=== PATIENT | female | born 1970 | race Native Hawaiian/Other Pacific Islander ===

== ENCOUNTER → 2017-05-13 | Day surgery (SDC) | payer OTHER ==
[~2017-05-13] VITALS: Ht 165.1 cm; Wt 52.9 kg
[~2017-05-13] MED LIST: *ONDANSETRON 4 MG VIAL PERIprocedural Use ONLY ONE; *morphine SULFATE 8 MG/ML PERIprocedure ONLY ONE; ACETAMINOPHEN 1000 MG/100 ML 0 ML IV ONE; ACETAMINOPHEN 1000 MG/100 ML 100 ML IV ONE; AMOX500T PO; BUPIVACAINE/EPINEPHRINE 0.25% PF 10 ML VIAL INFIL ONE; BUPIVACAINE/EPINEPHRINE 0.25% PF 30 ML VIAL INFIL ONE; CHLORHEXIDINE GLUCONATE 2 % 1 PACK (2 CLOTHS) TOPICAL PRN; DEXAMETHASONE SOD PHOS 4 MG/ML VIAL ONE; DO NOT ADM ANY ANTICOAGULANT DRUGS PRN; FAMOTIDINE 20 MG/2 ML VIAL ONE; FENO145T2 PO; FEXO60TA PO; GLYCOPYRROLATE 1 MG/5 ML SYRINGE IV PUSH ONE; INSULIN HUMAN REGULAR 1,000 UNITS/10 ML VIAL SQ PRN; KETOROLAC TROMETHAMINE 30 MG/ML (IVP) VIAL IV PUSH ONE; LEVO.1 PO; LIDOCAINE HCL 1% PF 5 ML AMPULE OTHER ONE; LORazepam 0.5 MG TAB PO ONE; METOPROLOL TARTRATE 25 MG TAB PO PRN; MIDAZOLAM HCL 2 MG/2 ML VIAL ONE; MULTTAB67 PO; NEOSTIGMINE 3 MG/3 ML SYR IV ONE; ONDANSETRON HCL 4 MG/2 ML VIAL ONE; PERC5TAB12 PO; POVIDONE IODINE 5% (ANTISEPSIS KIT) 4 APPLICATIONS EACH NARE PRN; PREN0.01 PO; PROMETHAZINE INJ 25 MG/ML VIAL ONE; PROPOFOL 200 MG/20 ML AMP IV ONE; ROCURONIUM INJ 50 MG/5 ML SYRINGE IV PUSH ONE; SYNT88TA PO; ePHEDrine/NS 25 MG/5 ML SYR IV ONE; oxyCODONE/ACETAMINOPHEN 5 MG/325 MG TAB PO PRN
[2017-05-13] MEDS: LACTATED RINGER'S 1000 ML IV PRN ×2 (07:45→12:30)
--- NOTE | 2017-05-13 11:20 | PD.OP ---
Operative Report Date of Surgery: May 13, 2017 Preoperative Diagnosis: (1) Ovarian cyst Postoperative Diagnosis: (1) Ovarian cyst Procedure: operative laparoscopy and bilateral salpingectomy Surgeon: Robe Hernandez Fusing Line Inspector(s): none Operation and Findings: bilateral ovarian cyst Robe Hernandez MD May 13, 2017 11:20
--- NOTE | 2017-05-13 11:28 | HHI.DCPOC ---
Discharge Care Plan Diagnosis: (1) Ovarian cyst Report Symptoms to Your Doctor -Temperature above 100.5 degrees -Redness, of incision or excessive or foul smelling drainage -Unusual pain or calf pain -Increased vaginal bleeding -Painful or difficulty urinating -Feelings of extreme sadness or anxiety after 2 weeks Goals to Promote Your Health * To prevent worsening of your condition and complications * To maintain your health at the optimal level Directions to Meet Your Goals Take your medications as prescribed Follow your dietary instruction Follow activity as directed Ensure plenty of rest for recovery Drink fluids for hydration Keep your appointments as scheduled Take your immunizations and boosters as scheduled If your symptoms worsen call your PCP, if no PCP go to Urgent Care Center or Emergency Room Smoking is Dangerous to Your Health. Avoid second hand smoke Call the 24-hour crisis hotline for domestic abuse at Robe Hernandez MD May 13, 2017 11:28
--- NOTE | 2017-05-13 11:29 | HHI.DS ---
Admission Date Discharge Date: May 13, 2017 Admitting Diagnosis Diagnosis: (1) Ovarian cyst Diagnosis: Principal ICD Codes: N83.209 - Unspecified ovarian cyst, unspecified side Brief History bilateral ovarian cysts Hospital Course patient had suregery and had both cysts removed Pt Condition on Discharge: Good Discharge Disposition: Discharge Home Discharge Instructions Diet Instructions: As Tolerated, No Restrictions Activities You Can Perform: Regular-No Restrictions Activities to Avoid: Driving for 24 hrs Follow up Referrals: G[facility]PER - 2 Weeks @ [facility] with Robe Hernandez MD New Medications: Oxycodone-Acetaminophen (Percocet) 5-325 mg Tab 1-2 TAB PO Q4H PRN for PAIN for 7 Days, #30 TAB 0 Refills Continued Medications: Fenofibrate (Fenofibrate) 145 Mg Tab 145 MG PO DAILY, #30 TAB 0 Refills Levothyroxine (Synthroid) 100 Mcg Tab 100 MCG PO DAILY for Thyroid, #30 TAB 0 Refills Multiple Vitamin (Multiple Vitamin) 1 Tab 1 TAB PO DAILY for Nutritional Supplement, TAB 0 Refills Robe Hernandez MD May 13, 2017 11:29
--- NOTE | 2017-05-13 12:03 | MP ---
cc: GEOFFREY ASH DATE OF SURGERY 05/13/2017 PROCEDURE Operative laparoscopy with bilateral cyst removal from both ovaries. PREOPERATIVE DIAGNOSIS Bilateral ovarian cysts. POSTOPERATIVE DIAGNOSIS Bilateral ovarian cysts. ANESTHESIA General Dr. Simmons. COMPLICATIONS None. FINDINGS Two large cysts on the left ovary and one small cyst on the right. Normal uterus. Normal anterior and posterior cul-de-sac. Normal liver and upper abdomen. PROCEDURE IN DETAIL After informed consent, the patient was taken to the operating room where she was placed under general anesthesia, placed in supine position. The bladder was drained with a red Andrews catheter. After the patient was prepped and draped in the normal sterile fashion a time-out was taken. A 5-mm infraumbilical incision was then made, carried sharply down through the subcutaneous tissue, entered the abdomen under direct visualization. The abdomen was insufflated to accommodate a 10-mm trocar through an old scar suprapubically and in the left lower quadrant, a 5-mm trocar. They were all injected with 0.25% Marcaine before entering the abdomen. The patient tolerated the procedure well. We surveyed the upper and lower abdomen. There was some omentum adherent to the anterior abdominal wall near the umbilicus but was not obscuring our surgery. We then used a harmonic scalpel to remove the cyst from the right ovary. Good hemostasis was achieved. The right ovary was much smaller than the left ovary, about half the size. On the left-hand side there were two large cysts; one appeared to be a hemorrhagic cyst, the other appeared to be a clear fluid-filled cyst. Both were taken down and taken off the ovary with 80% of the ovary remaining. Good hemostasis was achieved with the harmonic scalpel. Both cysts were removed from the abdomen to be sent to pathology for identification. The patient tolerated the procedure well. There was no blood or debris left in the abdomen. All instruments were removed. CO2 was drained from the abdomen and the fascia was closed suprapubically with 2-0 Vicryl and then 4-0 Monocryl was used to close the three incisions on the abdomen. The patient tolerated the procedure well. She was taken to the recovery room in stable condition. Lap and instrument counts were reported as correct. MD MARILEE Cantrell/GLADYS /11:21 AM /11:53 AM
[2017-05-13 15:55] VITALS: BP 108/67; PULSE 78; RESP 18; TEMP 97.1; O2SAT 100
== END | disposition home or self-care (01) ==
LOC: HSDC 06:26
PROVIDERS: ATTEND Obstetrics & Gynecology
DX: N83.201 Unspecified ovarian cyst, right side (principal); N83.12 Corpus luteum cyst of left ovary; E03.9 Hypothyroidism, unspecified; F41.9 Anxiety disorder, unspecified; F32.9 Major depressive disorder, single episode, unspecified; Z79.899 Other long term (current) drug therapy
CPT/HCPCS: 88304; 88305; J0131; J1100; J1885; J2250; J2270; J2405; J2550; J2710; J3010; J7120

== ENCOUNTER 2017-10-31 02:40 | Emergency (ER) | payer OTHER ==
[~2017-10-31] VITALS: Ht 165.1 cm; Wt 53.6 kg
[~2017-10-31 02:40] MED LIST changes: -*ONDANSETRON 4 MG VIAL PERIprocedural Use ONLY ONE; -*morphine SULFATE 8 MG/ML PERIprocedure ONLY ONE; -ACETAMINOPHEN 1000 MG/100 ML 0 ML IV ONE; -ACETAMINOPHEN 1000 MG/100 ML 100 ML IV ONE; -AMOX500T PO; -BUPIVACAINE/EPINEPHRINE 0.25% PF 10 ML VIAL INFIL ONE; -BUPIVACAINE/EPINEPHRINE 0.25% PF 30 ML VIAL INFIL ONE; -CHLORHEXIDINE GLUCONATE 2 % 1 PACK (2 CLOTHS) TOPICAL PRN; -DEXAMETHASONE SOD PHOS 4 MG/ML VIAL ONE; -DO NOT ADM ANY ANTICOAGULANT DRUGS PRN; -FAMOTIDINE 20 MG/2 ML VIAL ONE; -FEXO60TA PO; -GLYCOPYRROLATE 1 MG/5 ML SYRINGE IV PUSH ONE; -INSULIN HUMAN REGULAR 1,000 UNITS/10 ML VIAL SQ PRN; -KETOROLAC TROMETHAMINE 30 MG/ML (IVP) VIAL IV PUSH ONE; -LIDOCAINE HCL 1% PF 5 ML AMPULE OTHER ONE; -LORazepam 0.5 MG TAB PO ONE; -METOPROLOL TARTRATE 25 MG TAB PO PRN; -MIDAZOLAM HCL 2 MG/2 ML VIAL ONE; -NEOSTIGMINE 3 MG/3 ML SYR IV ONE; -ONDANSETRON HCL 4 MG/2 ML VIAL ONE; -POVIDONE IODINE 5% (ANTISEPSIS KIT) 4 APPLICATIONS EACH NARE PRN; -PREN0.01 PO; -PROMETHAZINE INJ 25 MG/ML VIAL ONE; -PROPOFOL 200 MG/20 ML AMP IV ONE; -ROCURONIUM INJ 50 MG/5 ML SYRINGE IV PUSH ONE; -SYNT88TA PO; -ePHEDrine/NS 25 MG/5 ML SYR IV ONE; -oxyCODONE/ACETAMINOPHEN 5 MG/325 MG TAB PO PRN
[2017-10-31 02:59] VITALS: BP 130/61; PULSE 69; RESP 18; TEMP 98.2; O2SAT 100
[2017-10-31] MEDS ORDERED: AMBI5TAB PO (04:10)
[2017-10-31] MEDS ORDERED: VITA1000 PO (04:10)
[2017-10-31 04:44] LABS: BILIRUBIN, URINE NEG (NEG); BLOOD, URINE TRACE (NEG); GLUCOSE,URINE NEG (NEG); KETONE, URINE NEG (NEG); NITRITE,URINE NEG (NEG); URINE COLOR YELLOW (YELLW/STRAW); URINE LEUKOCYTE ESTERASE SMALL (NEG)
[2017-10-31 04:45] LABS: AUTOMATED NEUTROPHIL # 2.3 TH/MM3 (1.8-7.7); BASOPHIL % 0.4 % (0.0-2.0); EOSINOPHIL # 0.3 TH/MM3 (0-0.4); EOSINOPHIL % 7.1 % (0.0-4.0); HEMATOCRIT 33.1 % (35.0-46.0); HEMOGLOBIN 10.8 GM/DL (11.6-15.3); LYMPH % 28.6 % (9.0-44.0); LYMPHOCYTE # 1.1 TH/MM3 (1.0-4.8); MEAN CELL VOLUME 84.7 FL (80.0-100.0); MEAN CORPUSCULAR HEMOGLOBIN 27.6 PG (27.0-34.0); MEAN CORPUSCULAR HGB CONC 32.6 % (32.0-36.0); MEAN PLATELET VOLUME 12.4 FL (7.0-11.0); MONOCYTE # 0.2 TH/MM3 (0-0.9); NEUT % 57.9 % (16.0-70.0); PLATELET COUNT 112 TH/MM3 (150-450); RED BLOOD COUNT 3.91 MIL/MM3 (4.00-5.30); RED CELL DISTRIBUTION WIDTH 14.1 % (11.6-17.2); WHITE BLOOD COUNT 3.9 TH/MM3 (4.0-11.0)
[2017-10-31 04:50] LABS: AMORPHOUS SEDIMENT, URINE LARGE; RBC, URINE 0-3 /hpf (0-3)
[2017-10-31 04:51] LABS: CHLORIDE 107 MEQ/L (98-107); SODIUM (NA) 138 MEQ/L (136-145)
[2017-10-31 04:55] LABS: ALBUMIN 3.6 GM/DL (3.4-5.0); BICARBONATE 25.9 MEQ/L (21.0-32.0); BLOOD UREA NITROGEN 17 MG/DL (7-18); GLUCOSE,RANDOM 91 MG/DL (74-106)
[2017-10-31 04:57] LABS: ALT (GPT) 16 U/L (10-53)
[2017-10-31 04:58] LABS: AST (GOT) 17 U/L (15-37); CREATININE 0.75 MG/DL (0.50-1.00); GLOMERULAR FILTRATION RATE 84 ML/MIN (>89)
[2017-10-31 04:59] LABS: TOTAL BILIRUBIN ADULT 0.4 MG/DL (0.2-1.0); TOTAL PROTEIN 7.8 GM/DL (6.4-8.2)
[2017-10-31 05:00] LABS: ALKALINE PHOSPHATASE 63 U/L (45-117)
[2017-10-31 05:45] VITALS: BP 148/78; PULSE 92; RESP 16; O2SAT 100
--- NOTE | 2017-10-31 06:11 | PD ---
HPI Chief Complaint: GI Complaint Time Seen by Provider: 06:01 Travel History International Travel<30 days: No Contact w/Intl Traveler<30days: No Traveled to known affect area: No History of Present Illness HPI The patient is a 47-year-old female that has midline epigastric pain for 7 hours. She took some antacid, Tums, and the pain only went away to where it is 1/10. It was apparently an 8/10. She denies any nausea or vomiting. She has a mild cough for 2-3 days and has a sore throat. The cough is nonproductive. She states she has a history of ovarian cyst. She does not smoke or drink alcohol. PFSH Past Medical History Anemia: Yes Cancer: No Cardiovascular Problems: No Diabetes: No Diminished Hearing: No Hepatitis: No Hiatal Hernia: No Hypertension: No Medical other: No Musculoskeletal: Yes (OSTEOPOROSIS) Respiratory: No Immunizations Current: Yes Thyroid Disease: Yes PNEUMOCCOCAL Vaccine (Year): 2 ?: Not : 2 Para: 2 Miscarriage: 0 : 0 Past Surgical History Abdominal Surgery: Yes (APPY) Appendectomy: Yes Gynecologic Surgery: Yes (LAPAROSCOPY) Other Surgery: Yes Social History Alcohol Use: No Tobacco Use: No Substance Use: No Allergies-Medications (Allergen,Severity, Reaction): Coded Allergies: No Known Allergies (Unverified , 05/13/17) Reported Meds & Prescriptions Reported Meds & Active Scripts Active Reported Vitamin D-1000 (Cholecalciferol) 1,000 Unit Tab 1,000 Units PO DAILY Ambien (Zolpidem Tartrate) 5 Mg Tab 5 Mg PO HS PRN Multiple Vitamin 1 Tab 1 Tab PO DAILY Fenofibrate 145 Mg Tab 145 Mg PO DAILY Synthroid (Levothyroxine Sodium) 100 Mcg Tab 100 Mcg PO DAILY Review of Systems Except as stated in HPI: all other systems reviewed are Neg Physical Exam Narrative The patient is alert, oriented 3 in minimal apparent distress with her epigastric discomfort. Data Data Last Documented VS Vital Signs Date Time Temp Pulse Resp B/P (MAP) Pulse Ox O2 Delivery O2 Flow Rate FiO2 10/31/17 02:59 98.2 69 18 130/61 (84) 100 Orders Orders Complete Blood Count With Diff (10/31/17 04:18) Comprehensive Metabolic Panel (10/31/17 04:18) Urinalysis - C+S If Indicated (10/31/17 04:18) Amylase (10/31/17 04:18) Lipase (10/31/17 04:18) Labs Laboratory Tests Test 10/31/17 04:30 White Blood Count 3.9 TH/MM3 Red Blood Count 3.91 MIL/MM3 Hemoglobin 10.8 GM/DL Hematocrit 33.1 % Mean Corpuscular Volume 84.7 FL Mean Corpuscular Hemoglobin 27.6 PG Mean Corpuscular Hemoglobin Concent 32.6 % Red Cell Distribution Width 14.1 % Platelet Count 112 TH/MM3 Mean Platelet Volume 12.4 FL Neutrophils (%) (Auto) 57.9 % Lymphocytes (%) (Auto) 28.6 % Monocytes (%) (Auto) 6.0 % Eosinophils (%) (Auto) 7.1 % Basophils (%) (Auto) 0.4 % Neutrophils # (Auto) 2.3 TH/MM3 Lymphocytes # (Auto) 1.1 TH/MM3 Monocytes # (Auto) 0.2 TH/MM3 Eosinophils # (Auto) 0.3 TH/MM3 Basophils # (Auto) 0.0 TH/MM3 CBC Comment DIFF FINAL Differential Comment Urine Color YELLOW Urine Turbidity CLOUDY Urine pH 8.0 Urine Specific Alexis 1.010 Urine Protein NEG mg/dL Urine Glucose (UA) NEG mg/dL Urine Ketones NEG mg/dL Urine Occult Blood TRACE Urine Nitrite NEG Urine Bilirubin NEG Urine Urobilinogen 0.2 MG/DL Urine Leukocyte Esterase SMALL Urine RBC 0-3 /hpf Urine WBC 3-5 /hpf Urine Squamous Epithelial Cells 6-8 /hpf Urine Amorphous Sediment LARGE Urine Bacteria NONE /hpf Microscopic Urinalysis Comment CULT NOT INDICATED Blood Urea Nitrogen 17 MG/DL Creatinine 0.75 MG/DL Random Glucose 91 MG/DL Total Protein 7.8 GM/DL Albumin 3.6 GM/DL Calcium Level 9.0 MG/DL Alkaline Phosphatase 63 U/L Aspartate Amino Transf (AST/SGOT) 17 U/L Alanine Aminotransferase (ALT/SGPT) 16 U/L Total Bilirubin 0.4 MG/DL Sodium Level 138 MEQ/L Potassium Level 3.3 MEQ/L Chloride Level 107 MEQ/L Carbon Dioxide Level 25.9 MEQ/L Anion Gap 5 MEQ/L Estimat Glomerular Filtration Rate 84 ML/MIN Amylase Level 60 U/L Lipase 251 U/L [facility] Medical Decision Making Medical Screen Exam Complete: Yes Emergency Medical Condition: Yes Medical Record Reviewed: Yes Differential Diagnosis GERD, ulcer pain, pancreatitis, electrolyte disorder, dehydration Narrative Course The patient likely has GERD. She got relief with the Tums and he has minimal pain at this time. Plan: The patient should follow-up with Dr. Rudolph Murphy and is given Prilosec and Zantac prescriptions. She should use liquid Maalox or Mylanta should this, again. Diagnosis Primary Impression: GERD (gastroesophageal reflux disease) Additional Instructions: Follow-up with your primary care physician, Dr. Murphy. The Zantac is 1 tablet twice daily and the Prilosec is 1 tablet once daily and they both worked to decrease your acid production in your stomach. If you get this pain again, try liquid Maalox or liquid Mylanta. Med/Other Pt SpecificInfo: Prescription(s) given Scripts Ranitidine (Zantac) 150 Mg Tab 150 MG PO BID for Reduce Stomach Acid, #60 TAB 0 Refills Prov: Tong Salinas MD 10/31/17 Omeprazole (Omeprazole) 20 Mg Tab 20 MG PO DAILY, #30 TAB 0 Refills Prov: Tong Salinas MD 10/31/17 Disposition: 01 DISCHARGE HOME Condition: Stable Tong Salinas MD Oct 31, 2017 06:11
[2017-10-31] MEDS ORDERED: OMEP20TA93 PO (06:32)
[2017-10-31] MEDS ORDERED: ZANT150T2 PO (06:32)
[2017-10-31] MEDS ORDERED: FAMOTIDINE 20 MG/2 ML VIAL IV PUSH ONE (06:45)
[2017-10-31] MEDS ORDERED: PANTOPRAZOLE SODIUM 40 MG VIAL IVP ONE (06:45)
[2017-10-31] MEDS ORDERED: SODIUM CHLORIDE 0.9% FLUSH 10 ML FLUSH IVF PRN (06:45)
[2017-10-31 07:19] VITALS: BP 136/70
== END 2017-10-31 07:22 | disposition home or self-care (01) ==
LOC: PHED 02:40
DX: K21.9 Gastro-esophageal reflux disease without esophagitis (principal); R05 Cough; J02.9 Acute pharyngitis, unspecified; D64.9 Anemia, unspecified; M81.0 Age-related osteoporosis without current pathological fracture; E07.9 Disorder of thyroid, unspecified; Z79.899 Other long term (current) drug therapy
CPT/HCPCS: 80053; 81001; 82150; 83690; 85025; 96374; 99283; C9113